=== PATIENT | female | born 1990 | race Caucasian/White ===

== ENCOUNTER 2017-07-13 12:46 | Outpatient (CLI) | payer BC | END 2017-07-13 12:47 | disposition home or self-care (01) | LOC: BICULT 12:46 | PROVIDERS: ATTEND Family Medicine | DX: Z34.92 Encounter for supervision of normal pregnancy, unspecified, second trimester (principal); Z3A.18 18 weeks gestation of pregnancy | CPT/HCPCS: 76805 ==

== ENCOUNTER 2017-12-06 05:40 | Inpatient (IN) | payer BC ==
[2017-12-06] MEDS ORDERED: Promethazine HCl 25 MG/ML VIAL IM PRN ×2 (06:01→08:58)
[2017-12-06] MEDS ORDERED: Lactated Ringer's 1,000 ML IV SCH ×2 (06:01→11:08)
[2017-12-06] MEDS ORDERED: Ondansetron HCl/PF 4 MG/2 ML Vial IVP PRN ×4 (06:01→11:08)
[2017-12-06] MEDS ORDERED: CEFAZOLIN/Water 2 GM/20 ML SYRINGE SLOW IVP SCH (06:01)
[2017-12-06] MEDS ORDERED: Bicitra 30 ML UDCUP PO SCH (06:01)
[2017-12-06 06:25] LABS: Hemoglobin 12.8 g/dL (12.0-16.0); Mean Corpuscular HGB CONC 34.8 g/dL (32.0-36.0); Mean Corpuscular Hemoglobin 32.7 pg (27.0-31.0); Mean Platelet Volume 8.1 fL (7.4-10.4); Platelet Count 196 thou/uL (130-400); RBC Distribution Width 11.7 % (11.5-14.5); Red Blood Cell (RBC) Count 3.92 mill/uL (4.20-5.40); White Blood Cell (WBC) Count 9.9 thou/uL (4.8-10.8)
[2017-12-06 06:57] LABS: Syphilis Antibody Nonreactive (Nonreactive); Syphilis Antibody Index 0.04 S/CO (<1.00 Non-Reactive)
[2017-12-06 06:58] LABS: HBSAg Index 0.24 S/CO (0-0.99); Hep B Surf Ag Non-Reactive S/CO (NonReactive)
[2017-12-06] MEDS ORDERED: Morphine PF 1 MG/ML SYR ONE (07:09)
[2017-12-06] MEDS ORDERED: PHENYLEPHRINE-NS 100 MCG/ML 10 ML SYRINGE ONE ×2 (07:09→13:22)
[2017-12-06] MEDS ORDERED: Bupivacaine 0.75% W/DEXTROSE 8.25% 2 ML AMP ONE (07:09)
[2017-12-06] MEDS ORDERED: Ondansetron HCl/PF 4 MG/2 ML Vial ONE ×2 (07:09→13:22)
[2017-12-06] MEDS ORDERED: Ketorolac Tromethamine 30 MG/ML VIAL ONE ×2 (07:09→13:22)
[2017-12-06] MEDS ORDERED: Oxytocin 10 UNITS/ML VIAL ONE (07:10)
[2017-12-06] MEDS ORDERED: Lidocaine 1% PF 5 ML VIAL ONE (07:29)
--- NOTE | 2017-12-06 08:43 | PDOC.OPDEL ---
OB Operative/Delivery Note Delivery Dr/Surgeon: Elma Perez Assist: Kelsy Navarrete Pre-Delivery Diagnosis: scheduled section Procedure/Post Delivery Dx: repeat low transverse CS Weeks gestation: 39 (39.2) Anesthesia: spinal - Findings A Sex: female Weight: 3.629 kg - 1 min: 8 - 5 min: 8 - Additional Findings/Plan Placenta delivered: spontaneous findings: low transverse hysterotomy without extension Estimated blood loss: 850 Compilations/Other Findings: Procedure Note Date of Procedure: 12/06/2017 Attending Surgeon: Earl Garcia Resident Assist: Kelsy Jaemson Procedure: Repeat low transverse caesarean section Preoperative Diagnosis: 1)Term intrauterine 2)Previous Postoperative Diagnosis: 1)Term intrauterine 2.)Previous Anesthesia: spinal Indications: The patient is a 27 year old G4,P1011 female at 39.2 weeks gestation who presents for a repeat scheduled . Procedure in Detail: After risks, benefits, and alternatives were explained to the patient, she gave informed consent. Pre-operative antibiotics included Cefazolin 2 gram IV. The patient was taken to the operating room and spinal anesthesia was initiated. She was placed in the supine position with a left tilt and prepped and draped in usual sterile fashion. A Pfannenstiel incision was made with a scalpel and carried down to the level of the fascia which was sharply nicked. The fascial cut was extended bilaterally with Malone sissors. The inferior and superior edges of the cut fascial edges were elevated with Chin clamps and the underlying rectus muscles were sharply and bluntly dissected free. The recti were divided digitally and retracted manually. The peritoneum was entered bluntly and retracted manually. The Tl O retractor was placed. A low transverse score was made with the scalpel and the uterus was entered in the midline with the scalpel. The amniotic sac was ruptured with an allis clamp and clear fluid was seen. The hysterotomy was extended manually. The infant was noted to be vertex and was delivered by vacuum and fundal pressure. Maximum pressure attained with one pop off and total vacuum time of 8 seconds. Two vacuum attempts required for delivery. Mouth and nares were bulb suctioned. Cord was clamped and cut and a grossly normal female was handed to waiting nurse. Cord blood was obtained. Placenta was spontaneously extracted, found to be intact with 3 vessel cord and discarded. The endometrium was curetted with a dry lap. The uterus was closed with a running locking 1-0 Monocryl CTX. Following this hemostasis was noted. The abdomen was irrigated with saline and suctioned free of clots. The peritoneum was closed with a running nonlocking 2-0 Chromic SH. The fascia was closed with a running non- locking 0-Vicryl suture. The subcutaneous tissue was irrigated and bleeders were bovied with good hemostasis. The subcutaneous tissue was approximated with a 2-0 Plain Gut suture. The skin was approximated with mariella and a pressure dressing was placed. All counts were correct. The patient tolerated the procedure well and was taken to the recovery room in stable condition. Estimated Blood Loss: 600ml Complications: None Specimens: Cord blood sent to lab Findings: Grossly normal female infant with Apgars of 8 and 8. Grossly normal placenta with 3 vessel cord discarded. Drains: Ibanez to gravity draining clear urine; UOP: 400 ml Post delivery plan: recovery in LICU
[2017-12-06] MEDS ORDERED: Eucerin (Mineral Oil/Petrolatum,White) 30 gm Jar TOP PRN (08:58)
[2017-12-06] MEDS ORDERED: Promethazine HCl 25 MG SUPP PR PRN (08:58)
[2017-12-06] MEDS ORDERED: Naloxone HCl 0.4 mg/ml Vial IVP PRN ×2 (08:58)
[2017-12-06] MEDS ORDERED: HYDROmorphone 2 MG/ML VIAL SLOW IVP PRN (08:58)
[2017-12-06] MEDS ORDERED: diphenhydrAMINE 50 MG/ML VIAL IVP PRN (08:58)
[2017-12-06] MEDS ORDERED: Meperidine HCl/PF 25 MG/ML VIAL SLOW IVP PRN (08:58)
[2017-12-06] MEDS ORDERED: Ketorolac Tromethamine 30 MG/ML VIAL IVP SCH (09:00)
[2017-12-06] MEDS ORDERED: Communication Order-Pharmacy FS SCH (09:00)
--- NOTE | 2017-12-06 10:47 | OP ---
DATE OF PROCEDURE: 12/06/2017 PREOPERATIVE DIAGNOSIS: Term intrauterine with previous section. POSTOPERATIVE DIAGNOSES: Term intrauterine with previous section, status post del alex. SURGERY: Repeat low transverse section. SURGEON: Amrita Perez M.D. OTM CONSULTANT: Dr. Nithya Jameson SECOND OTM CONSULTANT: Dr. Destin Perez COMPLICATIONS: No complications. PROCEDURE IN DETAIL: After adequate spinal anesthetic, the patient was placed in supine position. T he abdomen was prepped and draped in usual sterile technique. A Ibanez catheter had been placed after epidural. A wedge had been placed under her right flank. A Pfannenstiel incision was made in the i nferior aspect of the abdomen. Subcutaneous tissue opened with sharp dissection. Fascia opened with sharp and blunt dissection. An Tl retractor was placed without difficulty and a low transverse incision was made on the uterus. Membranes were ruptured. Clear fluid was encountered and a viable female infant was delivered from vertex presentation with vacuum assist with 1 pop off and 2 pulls no aimee less than 30 seconds. Infant breathed and cried spontaneously. Cord was clamped and cut after a pproximately 30 seconds and the infant was handed to care of the Neonatology Team. Cord blood was ob tained and the placenta was delivered manually. Membranes were wiped clean with a wet lap and hyster otomy edges were grasped with ring forceps. The hysterotomy was then closed in 1 layer using 1 Monoc ryl. Hemostasis was adequate. The Tl retractor was removed and the peritoneum was then closed i n continuous fashion using 2-0 chromic. The wound was irrigated. A few bleeders cauterized and the fascia was then closed in continuous fashion using 0 Vicryl. 2-0 chromic was then used to approximat e the subcutaneous tissue and the skin was closed using mariella. The patient tolerated the procedure well, in recovery room in good condition. Note the baby is a viable female , weight 8 pounds. Apgars 8 at 1 minute, 8 at 5 minutes in level 1 nursery. ESTIMATED BLOOD LOSS: 600 mL.
[2017-12-06] MEDS ORDERED: Simethicone Chewable 80 MG TAB PO PRN (11:08)
[2017-12-06] MEDS ORDERED: diphenhydrAMINE 25 MG CAP PO PRN (11:08)
[2017-12-06] MEDS ORDERED: Lanolin Ointment 7 GM TUBE TOP PRN (11:08)
[2017-12-06] MEDS ORDERED: Acetaminophen 325 MG TAB PO PRN (11:08)
[2017-12-06] MEDS ORDERED: Bisacodyl 10 MG SUPP PR PRN (11:08)
[2017-12-06] MEDS: Ketorolac Tromethamine 30 MG/ML VIAL IVP PRN ×2 (14:21→21:11)
[2017-12-06] MEDS: Ibuprofen 800 MG TAB PO SCH (14:22)
[2017-12-06] MEDS: Naloxone HCl 0.4 mg/ml Vial IV PRN ×2 (15:12→21:12)
[2017-12-06] MEDS ORDERED: Sodium Chloride 0.9% 10 ML ONE (19:33)
[2017-12-07] MEDS: Docusate Calcium (SURFAK) 240 MG CAP PO SCH ×3 (06:06→22:11)
[2017-12-07] MEDS: Ferrous Sulfate 325 MG TAB PO SCH ×3 (06:06→22:12)
[2017-12-07] MEDS: Ibuprofen 800 MG TAB PO SCH ×4 (06:06→22:11)
[2017-12-07 06:25] LABS: Hemoglobin 9.8 g/dL (12.0-16.0); Mean Corpuscular HGB CONC 35.3 g/dL (32.0-36.0); Mean Corpuscular Hemoglobin 33.8 pg (27.0-31.0); Mean Corpuscular Volume 95.8 fL (78.0-98.0); Mean Platelet Volume 8.1 fL (7.4-10.4); Platelet Count 158 thou/uL (130-400); RBC Distribution Width 11.8 % (11.5-14.5); Red Blood Cell (RBC) Count 2.91 mill/uL (4.20-5.40); White Blood Cell (WBC) Count 9.8 thou/uL (4.8-10.8)
--- NOTE | 2017-12-07 06:34 | PDOC.PP ---
Post Progress Note Post Day #: 1 Subjective: 27 yo now 2010 s/p repeat LTCS @ 39.2wks yesterday. Doing well this am. Pain controlled. Bleeding minimal. PO intake tolerated: yes Flatus: yes Ambulation: yes Vital Signs (12 hours) Temp Pulse Resp 12/07/17 00:00 98.2 F 59 L 20 12/06/17 20:00 98.2 F 59 L 20 Weight Weight 79.379 kg - Physical Examination General: NAD Cardiovascular: no m/r/g, RRR Respiratory: clear to auscultation bilaterally Abdominal: lochia (minimal) Fundus firm & at: umbilicus Skin: CS incision dry & intact Neurological: no gross focal deficits Psychiatric: A&Ox3, normal affect Result Diagrams: 12/07/17 05:26 Additional Labs: Post Labs Blood Type O POSITIVE 12/06/17 06:13 Hep Bs Antigen Non-Reactive S/CO (NonReactive) 12/06/17 06:12 (1) S/P repeat low transverse Code(s): Z98.891 - HISTORY OF UTERINE SCAR FROM PREVIOUS SURGERY Status: Acute (2) Term delivered Code(s): O80 - ENCOUNTER FOR FULL-TERM UNCOMPLICATED DELIVERY Status: Acute - Assessment/Plan 27 yo now 2010 s/p repeat LTCS @ 39.2wks. POD #1 1.)sIUP, delivered- -s/p rLTCS 7/10, POD #1 -pain controlled on Ibuprofen q8h scheduled and tylenol 650mg q6h prn -encourage ambulation -passing flatus; continue bowel regimen of docusate BID scheduled and dulcolax prn and simethacone prn -tolerating normal diet -monitor I/O's; urinated via in/out cath @ 2230 -Hb 12-->9; continue iron PO bid. Dispo: anticipate discharge at 48 hours
[2017-12-07] MEDS: Prenatal Vitamin 1 TAB PO SCH (09:10)
[2017-12-08] MEDS: Ibuprofen 800 MG TAB PO SCH ×3 (06:44→21:10)
[2017-12-08] MEDS: HYDROcodone/Acetaminophen 5/325 mg Tablet PO PRN (06:46)
--- NOTE | 2017-12-08 07:09 | PDOC.PP ---
Post Progress Note Post Day #: 2 Subjective: 27 yo now 2010 s/p repeat LTCS @ 39.2wks. POD #2 PO intake tolerated: yes Flatus: yes Ambulation: yes Vital Signs (12 hours) Temp Pulse Resp 12/07/17 20:00 97.7 F 71 20 Weight Weight 79.379 kg - Physical Examination General: NAD Cardiovascular: no m/r/g, RRR Respiratory: clear to auscultation bilaterally Abdominal: + bowel sounds, lochia (minimal) Skin: CS incision dry & intact Neurological: no gross focal deficits Psychiatric: A&Ox3, normal affect Result Diagrams: 12/07/17 05:26 Additional Labs: Post Labs Blood Type O POSITIVE 12/06/17 06:13 Hep Bs Antigen Non-Reactive S/CO (NonReactive) 12/06/17 06:12 (1) S/P repeat low transverse Code(s): Z98.891 - HISTORY OF UTERINE SCAR FROM PREVIOUS SURGERY Status: Acute (2) Term delivered Code(s): O80 - ENCOUNTER FOR FULL-TERM UNCOMPLICATED DELIVERY Status: Acute - Assessment/Plan 27 yo now 2010 s/p repeat LTCS @ 39.2wks. POD #2 1.)sIUP, delivered- -s/p rLTCS 12/06, POD #2 -pain controlled on Ibuprofen q8h scheduled and tylenol 650mg q6h prn -pt ambulating to restroom -passing flatus; continue bowel regimen of docusate BID scheduled and dulcolax prn and simethacone prn -tolerating normal diet -pt adequately urinating -Hb 12-->9; continue iron PO bid. Dispo: anticipate discharge >48 hours
[2017-12-08] MEDS: Ferrous Sulfate 325 MG TAB PO SCH ×2 (09:20→21:46)
[2017-12-08] MEDS: Docusate Calcium (SURFAK) 240 MG CAP PO SCH ×2 (09:20→21:10)
[2017-12-08] MEDS: Prenatal Vitamin 1 TAB PO SCH (09:20)
[2017-12-08] MEDS: Acetaminophen/Codeine 30-300mg Tablet PO PRN (17:38)
[2017-12-09] MEDS: HYDROcodone/Acetaminophen 5/325 mg Tablet PO PRN (01:04)
[2017-12-09] MEDS: Ibuprofen 800 MG TAB PO SCH (06:26)
[2017-12-09 08:02] VITALS: BP 109/62; TEMP 97.8
[2017-12-09] MEDS: Prenatal Vitamin 1 TAB PO SCH (09:16)
[2017-12-09] MEDS: Ferrous Sulfate 325 MG TAB PO SCH (09:16)
[2017-12-09] MEDS: Docusate Calcium (SURFAK) 240 MG CAP PO SCH (09:17)
[2017-12-09] MEDS: Acetaminophen/Codeine 30-300mg Tablet PO PRN (11:17)
== END 2017-12-09 12:45 | disposition home or self-care (01) | DRG 766 ==
LOC: L&D 05:40 → 3SW 10:53
PROVIDERS: ADMIT Family Medicine; ATTEND Family Medicine
PROC: 10D00Z1 Extraction of Products of Conception, Low, Open Approach (ICD-10-PCS; principal; 2017-12-06)
DX: O34.211 Maternal care for low transverse scar from previous cesarean delivery (principal); N85.8 Other specified noninflammatory disorders of uterus; Z3A.39 39 weeks gestation of pregnancy; Z37.0 Single live birth
CPT/HCPCS: 36415; 51702; 85027; 86780; 86850; 86900; 86901; 87340; A4216; J1885; J2001; J2274; J2310; J2405; J2590; J3490

== ENCOUNTER 2018-01-03 12:48 | Outpatient (CLI) | payer BC ==
--- NOTE | 2018-01-03 14:36 | CT ---
CT BRAIN WITHOUT CONTRAST: Date: 01/03/18 HISTORY: Vision changes. FINDINGS: No evidence of acute infarct, hemorrhage, midline shift, or abnormal extra-axial fluid collections ar e seen. The ventricular size is normal and the basilar cisterns are patent. The bony calvarium is int act. The visualized paranasal sinuses and mastoid air cells are well aerated. IMPRESSION: No CT evidence of acute intracranial process. POS: [facility]
== END 2018-01-03 12:49 | disposition home or self-care (01) ==
LOC: CT 12:48
PROVIDERS: ATTEND Physician Assistant
DX: H53.9 Unspecified visual disturbance (principal)
CPT/HCPCS: 70450

== ENCOUNTER 2021-06-10 08:59 | Emergency (ER) | payer BC ==
[2021-06-10 09:47] LABS: #Basophils 0.1 thou/uL (0.0-0.2); #Eosinphils 0.1 thou/uL (0.0-0.7); #Lymphocytes 1.3 thou/uL (1.20-3.40); #Monocytes 0.7 thou/uL (0.11-0.59); #Neutrophils 9.1 thou/uL (1.40-6.50); %Basophils 0.8 % (0.0-1.0); %Eosinophils 0.5 % (0.0-10.0); %Lymphocytes 11.7 % (21.0-51.0); %Neutrophils 81.1 % (42.0-75.0); Hemoglobin 13.4 g/dL (12.0-16.0); Mean Corpuscular HGB CONC 35.4 g/dL (32.0-36.0); Mean Corpuscular Volume 95.9 fL (78.0-98.0); Mean Platelet Volume 7.6 fL (7.4-10.4); Platelet Count 238 thou/uL (130-400); RBC Distribution Width 11.4 % (11.5-14.5); Red Blood Cell (RBC) Count 3.94 mill/uL (4.20-5.40); White Blood Cell (WBC) Count 11.2 thou/uL (4.8-10.8)
[2021-06-10 10:08] LABS: ALT (SGPT) 22 U/L (8-55); AST (SGOT) 21 U/L (5-34); Alkaline Phosphatase 63 U/L (40-110); Anion Gap 10 mmol/L (10-20); BUN (Urea Nitrogen) 14 mg/dL (7.0-18.7); Bilirubin, Total 0.5 mg/dL (0.2-1.2); Calc. Creatinine Clearance 0 mL/min (70-130); Calcium 9.4 mg/dL (7.8-10.44); Carbon Dioxide 27 mmol/L (22-29); Chloride 106 mmol/L (98-107); Globulin 2.8 g/dL (2.4-3.5); Glucose 87 mg/dL (70-105); Potassium 3.8 mmol/L (3.5-5.1); Protein, Total 6.8 g/dL (6.0-8.3); Sodium 139 mmol/L (136-145)
[2021-06-10 12:34] LABS: BHCG - Serum Negative (NEGATIVE); Pregs Control Background? CLEAR/WHITE (CLR/WHITE); Pregs Control Bar Appear? YES (CONTROL BAR)
[2021-06-10 12:56] LABS: Bilirubin Negative (Negative); Blood, Urine Negative (Negative); Clarity Clear (Clear); Glucose, Urine (Dipstick) Normal (Negative); Ketone, Urine Negative (Negative); Leukocyte Negative Leu/uL (Negative); Nitrite Negative (Negative); Protein, Urine (Dipstick) Negative (Neg-Trace); Specific Gravity, Urine 1.006 (1.002-1.036); Urobilinogen Normal mg/dL (Less than 2); pH, Urine 6.5 (5.0-9.0)
[2021-06-10 12:57] LABS: Pregnancy Test - Urine (BHCG) Negative (Negative); Pregu Control Background? CLEAR/WHITE (CLR/WHITE); Pregu Control Bar Appear? YES (CONTROL BAR); Specific Gravity 1.006 (1.002-1.036)
[2021-06-13 20:13] LABS: Chlamydia by PCR Not Detected (NotDetected); GC by PCR Not Detected (NotDetected)
== END 2021-06-10 15:10 | disposition home or self-care (01) ==
LOC: ERS 08:59
DX: N83.201 Unspecified ovarian cyst, right side (principal); N76.0 Acute vaginitis
CPT/HCPCS: 36415; 76856; 80053; 81003; 81025; 83690; 84703; 85025; 87480; 87491; 87510; 87591; 87660; 93976